=== PATIENT | female | born 2000 | race Two or more races ===

== ENCOUNTER 2025-07-14 07:57 | Emergency (ER) | payer OTHER ==
[~2025-07-14] VITALS: Ht 165.1 cm; Wt 65.8 kg
[2025-07-14] MEDS ORDERED: FAMOTIDINE/PF 20 MG in 0.9 % SODIUM CHLORIDE 8 ML IV PUSH ONE (09:15)
[2025-07-14] MEDS ORDERED: 0.9 % SODIUM CHLORIDE 1,000 ML IV ONE (09:15)
[2025-07-14] MEDS ORDERED: ONDANSETRON HCL 4 MG in 0.9 % SODIUM CHLORIDE 50 ML IV ONE (09:15)
[2025-07-14] MEDS ORDERED: ONDANSETRON HCL 2 MG/ML VIAL ONE (09:39)
[2025-07-14] MEDS ORDERED: FAMOTIDINE/PF 20 MG/2 ML VIAL ONE (09:40)
[2025-07-14 10:29] LABS: BASO % 0.5 % (0.1-1.2); EOS # 0.01 (0.04-0.54); EOS % 0.1 % (0.7-7.0); LYMPH # 1.73 (1.18-3.74); LYMPH % 20.8 % (19.3-53.1); MONO # 0.33 (0.24-0.82); MONO % 4.0 % (4.7-12.5); NEUT # 6.19 (1.56-6.13); NEUT % 74.2 % (34.0-71.1); RED CELL DISTRIBUTION WIDTH 18.9 % (11.6-14.4)
[2025-07-14 11:01] LABS: ALT/SGPT 29 U/L (12-78); AST/SGOT 12 U/L (15-37); BILIRUBIN TOTAL 0.51 mg/dL (0.3-1.2); BUN CREA RATIO 10 (7.0-25.0); CREATININE SERUM 0.84 mg/dL (0.55-1.02); GFR 84.78; GLOBULINA 4.2 G/DL (2.4-3.5); GLUCOSE FASTING 83 mg/dL (65-100); OSMOLALITY SERUM 277 MOSM/KG (275-295)
[2025-07-14 11:03] LABS: HCG QUANTITATIVE < 1 mUI/mL (1-3)
[2025-07-14] MEDS ORDERED: PROTONIX20 MG PO (13:09)
[2025-07-14] MEDS ORDERED: PEPCID20 MG PO (13:09)
== END 2025-07-14 13:16 | disposition home or self-care (01) ==
LOC: ER 07:58
PROVIDERS: General Practice
DX: K29.70 Gastritis, unspecified, without bleeding (principal); D64.9 Anemia, unspecified; R11.0 Nausea